=== PATIENT | male | born 1990 | race Caucasian/White ===

== ENCOUNTER 2018-12-02 16:16 | Emergency (ER) | payer OTHER ==
[2018-12-02] MEDS ORDERED: NS 0.9% 1000 ML** 1,000 ML IV ONE ×2 (16:29→16:34)
[2018-12-02] MEDS ORDERED: Ondansetron INJ* 2 MG/ML VIAL IV ONE (16:33)
[2018-12-02] MEDS ORDERED: Acetaminophen TAB* 325 MG PO ONE (16:34)
[2018-12-02] MEDS ORDERED: Morphine 4 MG/ML VIAL (1 ml) 4 MG/ML VIAL IV ONE (16:36)
--- NOTE | 2018-12-02 16:39 | ED ---
Abdominal Pain/Male - HPI Summary HPI Summary: 28 year old M presenting to [facility] with a chief complaint of severe abdominal pain that started 4 days ago. The patient rates the pain 10/10 in severity. Symptoms aggravated by food and bending his legs. Symptoms alleviated by Tylenol , last taken this morning. Patient reports nausea and vomiting. He reports fever 103 at home. He additionally complains of lump above his umbilicus and lump near his groin. Patient denies constipation, dysuria, rash. Patient is unsure whether he has sore throat since he has been vomiting. Denies recent travel. Patient does not have a primary care provider. Patients medication reviewed this visit. - History of Current Complaint Chief Complaint: EDAbdPain Stated Complaint: ABD PAIN PER PT Time Seen by Provider: 12/02/18 16:27 Hx Obtained From: Patient Onset/Duration: Lasting Days - 4, Still Present Timing: Constant Severity Currently: Severe Pain Intensity: 10 Pain Scale Used: 0-10 Numeric Aggravating Factor(s): Food, Other: - bending his legs Alleviating Factor(s): Medications - Tylenol Associated Signs And Symptoms: Positive: Negative - constipation, dysuria, rash , Other - nausea and vomiting, fever, lump above his umbilicus and lump near his groin - Allergies/Home Medications Allergies/Adverse Reactions: Allergies Allergy/AdvReac Type Severity Reaction Status Date / Time No Known Allergies Allergy Verified 04/19/14 10:49 PMH/Surg Hx/FS Hx/Imm Hx Previously Healthy: Yes Endocrine/Hematology History: Denies: Hx Diabetes, Hx Thyroid Disease Cardiovascular History: Denies: Hx Congestive Heart Failure, Hx Hypertension Respiratory History: Denies: Hx Asthma, Hx Chronic Obstructive Pulmonary Disease (COPD) GI History: Denies: Hx Ulcer History: Denies: Hx Renal Disease - Surgical History Surgery Procedure, Year, and Place: denies Infectious Disease History: No Infectious Disease History: Denies: Hx Clostridium Difficile, Hx Hepatitis, Hx Human Immunodeficiency Virus (HIV), Hx of Known/Suspected MRSA, Hx Shingles, Hx Tuberculosis, Traveled Outside the [place] in Last 30 Days - Family History Known Family History: Positive: Non-Contributory Negative: Blood Disorder - Social History Occupation: Employed Full-time Lives: With Family Alcohol Use: Rare Hx Substance Use: No Substance Use Type: Reports: None Hx Tobacco Use: Yes Smoking Status (MU): Light Every Day Tobacco Smoker Type: Cigarettes Amount Used/How Often: 1/2 ppd Review of Systems Positive: Fever Gastrointestinal: Negative - constipation Positive: Abdominal Pain, Vomiting, Nausea, Other - lump above his umbilicus and lump near his groin Negative: dysuria Negative: Rash All Other Systems Reviewed And Are Negative: Yes Physical Exam - Summary Physical Exam Summary: Vital Signs Reviewed: Yes A+Ox3, obvious discomfort, actively vomiting Eyes: Conjunctiva Clear, CHINYERE. EOM intact and full ENT: Hearing grossly normal TM x 2 clear, turbinates minimal inflammation mmoist, uvula midline, no exudate, + erythema Neck: Positive: Supple, + submandicular LA R>L Respiratory: Positive: No respiratory distress, No accessory muscle use + CTA throughout no w/r Cardiovascular: RRR nl s1, s2 no m/r CBT <2 sec abd soft diffusely tender, no palpable masses, noumbilical or Left groin hernia noted on exam decrease BS Musculoskeletal Exam: SHARP x 4 without difficulty Strength Intact, ROM Intact Neurological: Positive: Alert, + sensation throughout Psychological: Positive: Normal Response To vice investigator Skin: Positive: no rash, no ecchymosis Triage Information Reviewed: Yes Vital Signs On Initial Exam: Initial Vitals Temp Pulse Resp BP Pulse Ox 101.7 F 107 19 107/71 100 12/02/18 16:24 12/02/18 16:24 12/02/18 16:24 12/02/18 16:24 12/02/18 16:24 Vital Signs Reviewed: Yes Diagnostics - Vital Signs Vital Signs Temp Pulse Resp BP Pulse Ox 12/02/18 16:24 101.7 F 107 19 107/71 100 - Laboratory Result Diagrams: 12/02/18 17:01 12/02/18 17:00 Lab Statement: Any lab studies that have been ordered have been reviewed, and results considered in the medical decision making process. - Radiology Abdomen Radiology Interpretation Completed By: Radiologist Summary of Radiographic Findings: NONSPECIFIC GAS PATTERN. THERE IS MILD DISTENTION OF A COUPLE DISTAL SMALL BOWEL LOOPS. IF THE PATIENT'S SYMPTOMS PERSIST RECOMMEND FOLLOW-UP IMAGING. ED physician has reviewed this report. Re-Evaluation - Re-Evaluation First Eval Re-Evaluation Time: 20:27 Change: Improved Comment: Pain and nausea have resolved. labs reviewed. slight incrased LFT. will check us/ct. awaiting urine. pt understanding. . Abdominal Pain Male Course/Dx - Course Course Of Treatment: Pt present with progressive abdominal pain and vomiting. Pt with fever. liittle po no BM x 2 days no analgesia taken. Vitals reviewed. pt in obvious discomfort - diffuse abdominal pain. no hernia noted on exam. Pt very resistant to "getting addicted" will give samll dose morphine , zofran. apap. will check imaging, labs. reassess - Diagnoses Provider Diagnoses: Abdominal pain, Vomiting Discharge - Sign-Out/Discharge Documenting (check all that apply): Sign-Out Patient Signing out patient TO: Rory Rendon - awaiting CT A/P and US Abd, pending dispo Patient Received Moderate/Deep Sedation with Procedure: No - Discharge Plan Condition: Improved Disposition: HOME Prescriptions: Ondansetron ODT TAB* [Zofran 4 MG Odt TAB*] 8 mg PO Q6H PRN #12 tab.odt PRN Reason: Nausea Patient Education Materials: Acute Nausea and Vomiting (ED) Referrals: Jimena Kwan MD [Medical Doctor] - As Soon As Possible Additional Instructions: Your liver enzymes are mildly elevated and the liver size is somewhat large, so this will need to be further evaluated by a GI physician like Dr. Twin Medrano. In the meantime since your CT scan did not show any acute problem and you are feeling better, it is ok to let you go home at this point. I called in an rx for zofran in case the nausea becomes a problem again, and until you are sure you're on the mend I would stick to a light diet. - Billing Disposition and Condition Condition: IMPROVED Disposition: Home - Attestation Statements Document Initiated by Shelton: Yes Documenting Scribe: Kalyn Johnson Provider For Whom Shelton is Documenting (Include Credential): Bisi Dey MD Scribe Attestation: I, Kalyn Johnson, scribed for Bisi Dey MD on 12/06/18 at 1321. Scribe Documentation Reviewed: Yes Provider Attestation: The documentation as recorded by the scribeKalyn accurately reflects the service I personally performed and the decisions made by me, Bisi Dey MD Status of Scribe Document: Viewed
[2018-12-02 17:09] LABS: Hematocrit 46 % (42-52); Hemoglobin 16.4 g/dL (14.0-18.0); Mean Corpuscular HGB Conc 35 g/dL (31-36); Mean Corpuscular Hemoglobin 33 pg (27-31); Mean Corpuscular Volume 92 fL (80-94); Mean Platelet Volume 8.7 fL (7.4-10.4); Platelet Count 137 10^3/uL (150-450); Red Blood Count 5.01 10^6 /uL (4.18-5.48); Red Cell Distribution Width 13 % (10-15); White Blood Count 6.6 10^3/uL (3.5-10.8)
[2018-12-02 17:27] LABS: Albumin 4.5 g/dL (3.2-5.2); Albumin/Globulin Ratio 1.5 (1-3); BUN/Creatinine Ratio 11.7 (8-20); Calcium 9.8 mg/dL (8.6-10.3); EGFR Non-African American 94.2 (>60); Globulin 3.1 g/dL (2-4); Magnesium 1.6 mg/dL (1.9-2.7); Potassium 3.6 mmol/L (3.5-5.0); Total Protein 7.6 g/dL (6.4-8.9)
[2018-12-02 18:00] LABS: ABS Lymphocytes 0.7 10^3/ul (1.0-4.8); ABS Monocytes 0.5 10^3/ul (0-0.8); ABS Neutrophils 5.3 10^3/ul (1.5-7.7); Eosinophil % 0.1 %; Lymphocyte % 11.1 %
[2018-12-02] MEDS ORDERED: Iohexol 300* (CONTRAST) 10 ML SDV IV ONE (19:16)
--- NOTE | 2018-12-02 19:30 | ED ---
Progress - Progress Note Progress Note: This patient was signed out from Dr. Dey to Dr. Rendon upon shift change at 19:00 12/02/[address] abdomen/pelvis and abdominal ultrasound. Abdomen/pelvis CT impression: 1. There is left inguinal lymphadenopathy. 2. There is trace free fluid or ascites in the pelvis. 3. No other acute CT pathology. ED physician has reviewed this imaging report. Abdomen ultrasound impression: 1. Liver length is 16.7 cm and the liver appears otherwise unremarkable. 2. No other acute sonographic pathology. ED physician has reviewed this imaging report. Upon re-eval pain and nausea have resolved. Abdominal exam shows bilateral inguinal adenopathy but no hernias and no tenderness. The patient will be discharged with a prescription for Zofran and follow up with Dr. Kwan. The patient is agreeable with this plan. Re-Evaluation - Re-Evaluation First Eval Re-Evaluation Time: 20:27 Change: Improved Comment: Pain and nausea have resolved. Abdominal exam shows bilateral inguinal adenopathy but no hernias and no tenderness. Course/Dx - Course Course Of Treatment: This patient was signed out from Dr. Dey to Dr. Rendon upon shift change at 19:00 12/02/[address] abdomen/pelvis and abdominal ultrasound. Abdomen/pelvis CT impression: 1. There is left inguinal lymphadenopathy. 2. There is trace free fluid or ascites in the pelvis. 3. No other acute CT pathology. ED physician has reviewed this imaging report. Abdomen ultrasound impression: 1. Liver length is 16.7 cm and the liver appears otherwise unremarkable. 2. No other acute sonographic pathology. ED physician has reviewed this imaging report. Upon re-eval pain and nausea have resolved. Abdominal exam shows bilateral inguinal adenopathy but no hernias and no tenderness. The patient will be discharged with a prescription for Zofran and follow up with Dr. Kwan. The patient is agreeable with this plan. - Diagnoses Provider Diagnoses: Abdominal pain, Vomiting Discharge - Sign-Out/Discharge Documenting (check all that apply): Patient Departure - DC Patient Received Moderate/Deep Sedation with Procedure: No - Discharge Plan Condition: Improved Disposition: HOME Prescriptions: Ondansetron ODT TAB* [Zofran 4 MG Odt TAB*] 8 mg PO Q6H PRN #12 tab.odt PRN Reason: Nausea Patient Education Materials: Acute Nausea and Vomiting (ED) Referrals: Jimena Kwan MD [Medical Doctor] - As Soon As Possible Additional Instructions: Your liver enzymes are mildly elevated and the liver size is somewhat large, so this will need to be further evaluated by a GI physician like Dr. Twin Medrano. In the meantime since your CT scan did not show any acute problem and you are feeling better, it is ok to let you go home at this point. I called in an rx for zofran in case the nausea becomes a problem again, and until you are sure you're on the mend I would stick to a light diet. - Billing Disposition and Condition Condition: IMPROVED Disposition: Home - Attestation Statements Document Initiated by Shelton: Yes Documenting Scribe: Randolph Churchill Provider For Whom Shelton is Documenting (Include Credential): Rory Rendon MD Scribe Attestation: I, Randolph Churchill, scribed for Rory Rendon MD on 12/03/18 at 0152. Scribe Documentation Reviewed: Yes Provider Attestation: The documentation as recorded by the Randolph castellon accurately reflects the service I personally performed and the decisions made by me, Rory Rendon MD Status of Scribe Document: Viewed
[2018-12-02 20:46] VITALS: BP 140/77
== END 2018-12-02 20:52 | disposition home or self-care (01) ==
LOC: ED 16:16
DX: R10.9 Unspecified abdominal pain (principal); R59.1 Generalized enlarged lymph nodes; F17.210 Nicotine dependence, cigarettes, uncomplicated; R11.2 Nausea with vomiting, unspecified
CPT/HCPCS: 36415; 74019; 74177; 76705; 80053; 82550; 83605; 83690; 83735; 85025; 85060; 87040; 96361; 96374; 96375; 99284; A9270-GY; J2270; J2405; Q9967

== ENCOUNTER 2018-12-03 00:06 | Observation (INO) | payer OTHER ==
[2018-12-03] MEDS ORDERED: NS 0.9% 1000 ML** 2,000 ML IV ONE (00:35)
[2018-12-03] MEDS ORDERED: Ondansetron INJ* 2 MG/ML VIAL IV ONE (00:35)
--- NOTE | 2018-12-03 00:35 | ED ---
GI/ HPI - HPI Summary HPI Summary: A 28 y/o male presents to [facility] with a chief complaint of abdominal pain since 11/29/18. This patient was discharged two days ago. He notes that he went home and was vomiting with a fever of 103.3. Interval history is notable for the development of diarrhea towards the end of his visit earlier, which has worsened since he went home. There has been no hematochezia. At triage he rated his pain as an 8/10 in severity. - History of Current Complaint Chief Complaint: EDAbdPain Time Seen by Provider: 12/03/18 00:28 Stated Complaint: VOMITTING, WAS JUST HERE PER PT Hx Obtained From: Patient Onset/Duration: Started Days Ago, Still Present Timing: Intermittent Severity: Severe Current Severity: Severe Pain Intensity: 8 - out of 10 Location of Pain: Diffuse Pain Characteristics: Unable to describe Associated Signs and Symptoms: Positive: Nausea, Vomiting, Diarrhea, Fever. Negative: Blood w/Stool - Allergy/Home Medications Allergies/Adverse Reactions: Allergies Allergy/AdvReac Type Severity Reaction Status Date / Time No Known Allergies Allergy Verified 04/19/14 10:49 PMH/Surg Hx/FS Hx/Imm Hx Endocrine/Hematology History: Denies: Hx Diabetes, Hx Thyroid Disease Cardiovascular History: Denies: Hx Congestive Heart Failure, Hx Hypertension Respiratory History: Denies: Hx Asthma, Hx Chronic Obstructive Pulmonary Disease (COPD) GI History: Denies: Hx Ulcer History: Denies: Hx Renal Disease - Surgical History Surgery Procedure, Year, and Place: denies Infectious Disease History: No Infectious Disease History: Denies: Hx Clostridium Difficile, Hx Hepatitis, Hx Human Immunodeficiency Virus (HIV), Hx of Known/Suspected MRSA, Hx Shingles, Hx Tuberculosis, Traveled Outside the [place] in Last 30 Days - Family History Known Family History: Negative: Blood Disorder - Social History Alcohol Use: Rare Hx Substance Use: No Substance Use Type: Reports: None Hx Tobacco Use: Yes Smoking Status (MU): Light Every Day Tobacco Smoker Type: Cigarettes Amount Used/How Often: 1/2 ppd Review of Systems Positive: Fever Positive: Abdominal Pain, Vomiting, Diarrhea, Nausea, Other - negative: blood in stool All Other Systems Reviewed And Are Negative: Yes Physical Exam - Summary Physical Exam Summary: Appearance: Well-appearing, Well-nourished, lying in bed comfortably Skin: Warm, dry, no obvious rash Eyes: sclera anicteric, no conjunctival pallor ENT: mucous membranes moist, pharynx appears normal Neck: Supple, nontender Respiratory: Clear to auscultation, no signs of respiratory distress Cardiovascular: Normal S1, S2. No murmurs. Normal distal pulses in tibial and radial bilaterally. Abdomen: Soft, generalized abdominal tenderness without peritoneal signs, normal active bowel sounds present Musculoskeletal: Normal, Strength/ROM Intact Neurological: A&Ox3, awake and alert, mentation is normal, speech is fluent and appropriate Psychiatric: affect is normal, does not appear anxious or depressed Triage Information Reviewed: Yes Vital Signs On Initial Exam: Initial Vitals Temp Pulse Resp BP Pulse Ox 100.5 F 98 20 120/67 95 12/03/18 00:12 12/03/18 00:12 12/03/18 00:12 12/03/18 00:12 12/03/18 00:12 Vital Signs Reviewed: Yes Diagnostics - Vital Signs Vital Signs Temp Pulse Resp BP Pulse Ox 12/03/18 00:12 100.5 F 98 20 120/67 95 - Laboratory Result Diagrams: 12/03/18 01:08 12/03/18 01:08 Lab Statement: Any lab studies that have been ordered have been reviewed, and results considered in the medical decision making process. GIGU Course/Dx - Course Course Of Treatment: A 28 y/o male presents to [facility] with a chief complaint of abdominal pain since 11/29/18. This patient was recently discharged 2 hours ago but then he reported fever, N/V/D. The physical exam revealed generalized abdominal tenderness without peritoneal signs. In the ED course the patient was given Zofran IV and Sodium Chloride IV. Bloodwork, chemistries and UA obtained. Discussed case with Dr. Miller, hospitalist, who accepted the patient for admission. The patient is agreeable with this plan. - Diagnoses Provider Diagnoses: Gastroenteritis - Physician Notifications Discussed Care Of Patient With: Benji Miller Time Discussed With Above Provider: 00:53 Instructed by Provider To: Admit As Inpatient Discharge - Sign-Out/Discharge Documenting (check all that apply): Patient Departure - admit Patient Received Moderate/Deep Sedation with Procedure: No - Discharge Plan Condition: Fair Disposition: ADMITTED TO [facility] Referrals: No Primary Care Phys,NOPCP [Primary Care Provider] - - Billing Disposition and Condition Condition: FAIR Disposition: Admitted to [facility] - Attestation Statements Document Initiated by Pepitoibe: Yes Documenting Scribe: Randolph Churchill Provider For Whom Shelton is Documenting (Include Credential): Rory Rendon MD Scribe Attestation: IRandolph, scribed for Rory Rendon MD on 12/03/18 at 0159. Scribe Documentation Reviewed: Yes Provider Attestation: The documentation as recorded by the Randolph castellon accurately reflects the service I personally performed and the decisions made by meRory MD Status of Scribe Document: Viewed
[2018-12-03 01:35] LABS: ABS Lymphocytes 0.6 10^3/ul (1.0-4.8); ABS Monocytes 0.4 10^3/ul (0-0.8); ABS Neutrophils 4.8 10^3/ul (1.5-7.7); Hematocrit 37 % (42-52); Hemoglobin 13.2 g/dL (14.0-18.0); Lymphocyte % 9.6 %; Mean Corpuscular HGB Conc 36 g/dL (31-36); Mean Corpuscular Hemoglobin 33 pg (27-31); Mean Corpuscular Volume 92 fL (80-94); Mean Platelet Volume 8.5 fL (7.4-10.4); Platelet Count 108 10^3/uL (150-450); Red Blood Count 4.02 10^6 /uL (4.18-5.48); Red Cell Distribution Width 12 % (10-15); White Blood Count 5.8 10^3/uL (3.5-10.8)
[2018-12-03 01:38] LABS: Albumin 3.3 g/dL (3.2-5.2); Albumin/Globulin Ratio 1.4 (1-3); BUN/Creatinine Ratio 11.8 (8-20); C Reactive Protein 38.03 mg/L (<8.01); EGFR African American 145.7 (>60); EGFR Non-African American 120.4 (>60); Globulin 2.4 g/dL (2-4); Potassium 3.4 mmol/L (3.5-5.0); Total Bilirubin 0.7 mg/dL (0.2-1.0); Total Protein 5.7 g/dL (6.4-8.9)
--- NOTE | 2018-12-03 03:39 | HP ---
History of Present Illness - History of Present Illness Reason for Visit: Vomiting, Abdominal Pain and diarrhea. History of Present Illness: 28yoM who's otherwise healthy was in his usual state of health until Friday when he had a hamburger and after that he had vomiting episode. Vomiting was later followed with abdominal pain which was worsening. He finally came to ER yesterday had CT abdomen pelvis, US abdomen and was discharge home with NICHOLAS bautistabritt. However when he reached home he started having diarrhea and vomiting again so returned to ER. He did have fever at home of 103 and in ER of 100.5. 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 Denies any alcohol intake. Denies any other sick contacts. 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 Alcohol: None Drugs: None Lives: With Family - Has 5 kids. Review of Systems - Measurements Intake and Output: Intake and Output Last 24 Hours 11/30/18 12/01/18 12/02/18 12/03/18 06:59 06:59 06:59 06:59 Weight 175 lb - Review of Systems Constitutional Symptoms: Positive: Fever Pulmonary: Negative: Cough, Sputum Cardiology: Negative: Chest Pain Gastroenterology: Positive: Nausea, Vomiting, Diarrhea Neurology: Negative: Headache, Migraines Psychiatry: Negative: Depression, Anxiety Objective Vital Signs - 8 hr 12/03/18 12/03/18 12/03/18 00:12 00:26 00:29 Temperature 100.5 F Pulse Rate 98 74 79 Respiratory 20 Rate Blood Pressure 120/67 157/76 (mmHg) O2 Sat by Pulse 95 96 98 Oximetry 12/03/18 12/03/18 01:00 01:11 Temperature Pulse Rate 70 56 Respiratory Rate Blood Pressure 146/78 (mmHg) O2 Sat by Pulse 98 98 Oximetry Oxygen Devices in Use Now: None Eyes: No Scleral Icterus, PERRLA Ears/Nose/Mouth/Throat: Mucous Membranes Moist Neck: NL Appearance and Movements; NL JVP Respiratory: Clear to Auscultation Cardiovascular: NL Sounds; No Murmurs; No JVD Abdominal: NL Sounds; No Tenderness; No Distention, No Hepatosplenomegaly Extremities: No Edema Neurological: Alert and Oriented x 3, NL Sensation, NL Muscle Strength and Tone Result Diagrams: 12/03/18 01:08 12/03/18 01:08 Diagnostic Imaging: US ABDOMEN 1. Liver length is 16.7 cm and the liver appears otherwise unremarkable. 2. No other acute sonographic pathology. CT ABD/PELVIS IMPRESSION: 1. There is left inguinal lymphadenopathy. 2. There is trace free fluid or ascites in the pelvis. 3. No other acute CT pathology. Assess/Plan/Problems-Billing Assessment: 28yoM with intractable vomiting, abdominal pain and diarrhea. Abnormal LFTs. - Patient Problems (1) Intractable vomiting with nausea Current Visit: Yes Status: Acute Code(s): R11.2 - NAUSEA WITH VOMITING, UNSPECIFIED SNOMED Code(s): 339979316 Comment: Possible viral vs bacterial gastro-enteritis. Replace potassium. (2) Diarrhea Current Visit: Yes Status: Acute Code(s): R19.7 - DIARRHEA, UNSPECIFIED SNOMED Code(s): 15894996 Comment: Follow up stool cultures and stool c. diff. Will start cipro/flagyl given fever. (3) Abnormal LFTs Current Visit: Yes Status: Acute Code(s): R94.5 - ABNORMAL RESULTS OF LIVER FUNCTION STUDIES SNOMED Code(s): 226553753 Comment: Repeat LFT in AM. Hepatitis panel sent. 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 Will consider GI consult if symptoms don't resolve. Allergies/Medications Allergies/Adverse Reactions: Allergies Allergy/AdvReac Type Severity Reaction Status Date / Time No Known Allergies Allergy Verified 04/19/14 10:49
[2018-12-03] MEDS ORDERED: Morphine INJ* 2 MG/ML 1 ML SYRINGE (TWO MG - NEW SYRINGE VERSION) IV PRN (04:13)
[2018-12-03] MEDS ORDERED: NS 0.9% 1000 ML** 1,000 ML IV SCH ×2 (04:15→09:04)
[2018-12-03] MEDS: Ondansetron INJ* 2 MG/ML VIAL IV PRN ×4 (04:29→17:17)
[2018-12-03] MEDS ORDERED: ED ONCE IVPB ONE (04:30)
[2018-12-03] MEDS ORDERED: CIPROFLOXACIN 400 MG IVPB ONE (04:30)
[2018-12-03 04:47] LABS: Hepatitis B Surface Antigen Negative (Negative)
[2018-12-03 05:01] LABS: Urine Appearance Clear; Urine Bacteria Absent (Absent); Urine Bilirubin Negative (Negative); Urine Blood 1+ (Negative); Urine Color Yellow; Urine Glucose Negative (Negative); Urine Ketones 1+ (Negative); Urine Nitrite Negative (Negative); Urine Protein Negative (Negative); Urine Red Blood Cell 1+(3-5/hpf) (Absent); Urine Urobilinogen Negative (Negative); Urine White Blood Cell Trace(0-5/hpf) (Absent)
[2018-12-03 05:05] LABS: Hepatitis C Antibody Negative (Negative)
[2018-12-03] MEDS ORDERED: metroNIDAZOLE IV 500 MG/100ML* 500 MG/100 ML BAG IVPB SCH (06:00)
[2018-12-03] MEDS: Acetaminophen TAB* 325 MG PO PRN ×2 (08:01→13:03)
[2018-12-03] MEDS ORDERED: NS 0.9% 1000 ML** 1,000 ML IV ONE (09:03)
--- NOTE | 2018-12-03 09:10 | PN ---
Subjective Date of Service: 12/03/18 Interval History: Somewhat better today. Still some diarrhea, no nausea currently (better after ondansetron). Had sweat after APAP. No new c/o. Objective Active Medications: Acetaminophen (Tylenol Tab*) 650 mg PO Q4H PRN PRN Reason: FEVER/PAIN Last Admin: 12/03/18 08:01 Dose: 650 mg Sodium Chloride (Ns 0.9% 1000 Ml) 1,000 mls @ 1,000 mls/hr IV .PER RATE ONE Stop: 12/03/18 10:02 Sodium Chloride (Ns 0.9% 1000 Ml) 1,000 mls @ 125 mls/hr IV PER RATE SHERI Morphine Sulfate (Morphine Inj (Syringe))*) 2 mg IV Q4H PRN PRN Reason: PAIN - MODERATE TO SEVERE Last Admin: 12/03/18 04:29 Dose: 2 mg Ondansetron HCl (Zofran Inj*) 4 mg IV Q4H PRN PRN Reason: NAUSEA/VOMITING Last Admin: 12/03/18 08:02 Dose: 4 mg Vital Signs - 8 hr 12/03/18 12/03/18 12/03/18 01:11 02:00 02:11 Temperature Pulse Rate 56 68 68 Respiratory Rate Blood Pressure 146/78 145/66 (mmHg) O2 Sat by Pulse 98 95 95 Oximetry 12/03/18 12/03/18 12/03/18 02:41 03:00 03:11 Temperature Pulse Rate 69 70 61 Respiratory Rate Blood Pressure 130/78 123/75 (mmHg) O2 Sat by Pulse 96 97 97 Oximetry 12/03/18 12/03/18 12/03/18 03:41 04:00 04:29 Temperature Pulse Rate 71 72 Respiratory 18 Rate Blood Pressure 134/73 (mmHg) O2 Sat by Pulse 98 98 Oximetry 12/03/18 12/03/18 12/03/18 05:18 05:19 05:30 Temperature 101.6 F Pulse Rate 80 Respiratory 18 19 Rate Blood Pressure 139/74 139/74 (mmHg) O2 Sat by Pulse 99 Oximetry 12/03/18 12/03/18 06:10 08:00 Temperature 99.5 F Pulse Rate 72 Respiratory 19 18 Rate Blood Pressure 143/62 (mmHg) O2 Sat by Pulse 100 Oximetry Oxygen Devices in Use Now: None Appearance: Alert, partly up in bed. In good spirits, looks comfortable. Eyes: No Scleral Icterus Abdominal: NL Sounds; No Tenderness; No Distention, No Hepatosplenomegaly, - Lymphatic: - - L inguuinal nodes mildly enlarged (pt states were larger yesterday), not tender. Extremities: No Edema, No Clubbing, Cyanosis, - Skin: No Rash or Ulcers, No Nodules or Sclerosis, - Neurological: Alert and Oriented x 3, NL Sensation Result Diagrams: 12/03/18 01:08 12/03/18 01:08 Microbiology and Other Data: Microbiology 12/03/18 04:38 Stool Gross Appearance - Final Stool C. difficile DNA Amplification - Final 027 Presumptive NEGATIVE Toxigenic C.diff NEGATIVE Diagnostic Imaging: US ABDOMEN 1. Liver length is 16.7 cm and the liver appears otherwise unremarkable. 2. No other acute sonographic pathology. CT ABD/PELVIS IMPRESSION: 1. There is left inguinal lymphadenopathy. 2. There is trace free fluid or ascites in the pelvis. 3. No other acute CT pathology. Assess/Plan/Problems-Billing Assessment: 28yoM with intractable vomiting, abdominal pain and diarrhea. Abnormal LFTs. - Patient Problems (1) Intractable vomiting with nausea Current Visit: Yes Status: Acute Code(s): R11.2 - NAUSEA WITH VOMITING, UNSPECIFIED SNOMED Code(s): 794567921 Comment: Possible viral vs bacterial gastro-enteritis. No indication for antibiotics 12/03. Note neg C. diff, neg toxigenic E. coli, nl WBC. CBC 12/04. (2) Abnormal LFTs Current Visit: Yes Status: Acute Code(s): R94.5 - ABNORMAL RESULTS OF LIVER FUNCTION STUDIES SNOMED Code(s): 095383505 Comment: Repeat LFT in 12/04. Hepatitis panel neg, too soon for Ab's to rise. ? 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 Liver panel 12/04. (3) Hypokalemia Current Visit: Yes Status: Acute Code(s): E87.6 - HYPOKALEMIA SNOMED Code( s): 27834591 Comment: [place] fluids with KCL at 125/hr. BMP 12/04.
--- NOTE | 2018-12-03 09:33 | PN ---
Progress Note - Progress Note Date of Service: 12/03/18 Note: Additional diagnosis: Thrombocytopenia. Mild, likely related to current infection. Repeat CBC 12/04.
[2018-12-03] MEDS ORDERED: D5W 1/2 NS KCl 20 Meq 1000 ML* 1,000 ML IV SCH (10:00)
[2018-12-03 16:46] VITALS: BP 127/85
[2018-12-03] MEDS ORDERED: Ciprofloxacin 400MG IVPREMIX(* 400 MG/200 ML BAG IVPB SCH (17:00)
--- NOTE | 2018-12-07 19:00 | PN ---
Progress Note - Progress Note Date of Service: 12/07/18 Note: I tried to contact the patient on 12/04 but he did not return my call that day. I spoke to the patient on the phone 12/05/18. He agreed to come to the [facility] outpt lab for a CBC and CMP on 12/07/18. I completed a requisition at the outpt lab on 12/05/18. He did not come for his lab work on 12/07/18. I called on 12/07/18 and left a message on his voice mail to call me back on my personal cell phone.
== END 2018-12-03 20:10 | disposition home or self-care (01) ==
LOC: ED 00:06 → MED 04:13 → INTOOBSV 04:13
PROVIDERS: ADMIT Internal Medicine; ATTEND Internal Medicine
DX: R11.2 Nausea with vomiting, unspecified (principal); K52.9 Noninfective gastroenteritis and colitis, unspecified; R19.7 Diarrhea, unspecified; R50.9 Fever, unspecified; F17.210 Nicotine dependence, cigarettes, uncomplicated; R94.5 Abnormal results of liver function studies; D69.6 Thrombocytopenia, unspecified; E87.6 Hypokalemia
CPT/HCPCS: 36415; 80053; 80074; 81003; 81015; 83605; 85025; 86140; 87040; 87045; 87046; 87086; 87493; 87899; 96365; 96366; 96375; 96376; 99284; A9270-GY; G0378; J0744; J2270; J2405; J3490